=== PATIENT | male | born 1995 | race Caucasian/White ===

== ENCOUNTER 2019-01-25 07:15 | Emergency (ER) | payer MEDICAID ==
[~2019-01-25] VITALS: Ht 170.2 cm; Wt 60.4 kg
[2019-01-25 07:21] VITALS: BP 97/69
--- NOTE | 2019-01-25 07:26 | NUR ---
PT AMBULATED TO BED 7
--- NOTE | 2019-01-25 07:36 | NUR ---
PATIENT PRESENTS TO ED WITH C/O SMALL LACERATION TO LT FIFTH FINGER; NO ACTIVE BLEEDING AT THIS TIME. NO OBVIOUS DEFORMITY TO THE AFFECTED SITE. DENIES NAUSEA, VOMITING OR FEVER. PATIENT STATES PAIN OF 6/10; VSS; PER PT HE WAS BOWLING YESTERDAY AND SLIPPED AND FELL;THE BALL LANDED ON HIS LT HAND CAUSING THE SMALL LACERATION. PATIENT POSITIONED FOR COMFORT; BEDRAILS UP X1; BED DOWN. ER MD TO EVALUATE PT.
--- NOTE | 2019-01-25 07:43 | NUR ---
DR BYRNE EVALUATING PT
[2019-01-25] MEDS ORDERED: LIDOCAINE 2% 1000 MG/50 ML VIAL INJ ONE (07:50)
--- NOTE | 2019-01-25 08:10 | NUR ---
X-Ray at bedside.
--- NOTE | 2019-01-25 08:25 | NUR ---
DR BYRNE AT BEDSIDE RE-EVALUATING PT.
--- NOTE | 2019-01-25 08:49 | NUR ---
laceration kit set up.
--- NOTE | 2019-01-25 09:30 | NUR ---
Patient has a laceration of approx 1 cm. applied sutures using sterile technique. Edges well approximated. Site cleansed. No bleeding noted. Pt tolerated well.
[2019-01-25 09:45] VITALS: BP 106/82
== END 2019-01-25 09:46 | disposition home or self-care (01) ==
LOC: MED 07:15
DX: S61.217A Laceration without foreign body of left little finger without damage to nail, initial encounter (principal); W20.8XXA Other cause of strike by thrown, projected or falling object, initial encounter; Y93.54 Activity, bowling; Y92.89 Other specified places as the place of occurrence of the external cause; Y99.8 Other external cause status
CPT/HCPCS: 12001; 73130; 90471; 90715; 99283; J2001

== ENCOUNTER 2019-02-01 10:10 | Emergency (ER) | payer MEDICAID ==
[~2019-02-01] VITALS: Ht 167.6 cm; Wt 61.2 kg
[2019-02-01 10:15] VITALS: BP 105/65
--- NOTE | 2019-02-01 10:22 | NUR ---
CAME IN FOR SUTURE RECHECK TO LEFT FINGER. WAS TREATED ONE WEEK AGO.DENIES N/V/D; SKIN IS PINK/WARM/DRY; AAOX4 WITH EVEN AND STEADY GAIT; LUNGS CLEAR BL; HR EVEN AND REGULAR; PT DENIES ANY FEVER, CP, SOB, OR COUGH AT THIS TIME; VSS; PATIENT POSITIONED FOR COMFORT; HOB ELEVATED; BEDRAILS UP X2; BED DOWN. ER MD MADE AWARE OF PT STATUS.
--- NOTE | 2019-02-01 11:18 | NUR ---
Dr. Oscar evaluating patient at bedside.
--- NOTE | 2019-02-01 11:23 | NUR ---
suture removal kit at bedside as requested by MD----pt playing on cell phone sutures to left 5th digit remain intact, no drainage noted
--- NOTE | 2019-02-01 11:50 | NUR ---
Dr. Oscar evaluating patient at bedside.
[2019-02-01 12:10] VITALS: BP 105/65
--- NOTE | 2019-02-01 12:11 | NUR ---
Patient discharged with v/s stable. Written and verbal after care instructions given and explained. Patient verbalized understanding. Ambulatory with steady gait. All questions addressed prior to discharge. Advised to follow up with PMD.
== END 2019-02-01 12:11 | disposition home or self-care (01) ==
LOC: MED 10:10
DX: S61.217D Laceration without foreign body of left little finger without damage to nail, subsequent encounter (principal); X58.XXXD Exposure to other specified factors, subsequent encounter
CPT/HCPCS: 99281

== ENCOUNTER 2019-03-21 18:09 | Emergency (ER) | payer MEDICAID ==
[~2019-03-21] VITALS: Ht 172.7 cm; Wt 59.0 kg
[2019-03-21 18:29] VITALS: BP 106/82
--- NOTE | 2019-03-21 18:33 | NUR ---
PT TO WAIT IN ER LOBBY. VSS. [id number]. BLEEDING CONTROLLED
--- NOTE | 2019-03-21 23:33 | NUR ---
PATIENT LEFT WITHOUT BEING SEEN BY DR. DELA CRUZ. NO FURTHER CARE PROVIDED FOR PATIENT.
== END 2019-03-21 23:33 | disposition left against medical advice (07) ==
LOC: MED 18:09
DX: S01.81XA Laceration without foreign body of other part of head, initial encounter (principal); X58.XXXA Exposure to other specified factors, initial encounter; Y93.89 Activity, other specified; Y92.89 Other specified places as the place of occurrence of the external cause; Y99.8 Other external cause status; Z53.21 Procedure and treatment not carried out due to patient leaving prior to being seen by health care provider

== ENCOUNTER 2019-05-12 13:30 | Emergency (ER) | payer MEDICAID ==
[~2019-05-12] VITALS: Ht 170.2 cm; Wt 58.6 kg
[2019-05-12 13:39] VITALS: BP 109/76
--- NOTE | 2019-05-12 13:45 | NUR ---
PT AMBULATES BACK TO THE LOBBY
--- NOTE | 2019-05-12 14:25 | NUR ---
Pt ambulated to bed 9.
--- NOTE | 2019-05-12 14:40 | NUR ---
23/M PRESENTS TO ED, C/O EPISODE OF MINIMAL HEMATEMESIS TODAY. STATED THAT HE ALSO HAD AN EPISODE LAST WEEK. PT REPORTS THAT HE HAS BEEN FEELING N/V WHEN HE WAKES UP RECENTLY. PT DENIES FEVER/CHILL, CP, COUGH, SOB, OR ABD PAIN. PT AWAKE AND ALERT, SKIN NORMAL COLOR WARM AND DRY, RR EVEN AND UNLABORED. BS HYPOACTIVE X4, ABD SOFT FLAT NONTENDER. DENIES MED HX OR RX. REPORTS SOCIAL ALCOHOL USE AND OCCASIONAL CANNABINOID SMOKING
--- NOTE | 2019-05-12 14:46 | NUR ---
Patient returned from XRAY. RN re-evaluating patient at bedside.
[2019-05-12 15:46] LABS: BASOPHILS % (AUTO) 0.3 % (0.0-2.0); EOSINOPHILS % (AUTO) 0.7 % (0.0-4.0); HEMATOCRIT 54.1 % (36-52); HEMOGLOBIN 18.2 g/dL (12.0-18.0); LYMPHOCYTES # (AUTO) 0.9 K/uL (2.0-11.5); LYMPHOCYTES % (AUTO) 18.3 % (20.5-51.1); MEAN CORPUSCULAR HEMOGLOBIN 33 pg (27-31); MEAN CORPUSCULAR HGB CONC 34 g/dL (33-37); MEAN CORPUSCULAR VOLUME 96.4 fL (80-94); MONOCYTES # (AUTO) 0.4 K/uL (0.8-1.0); MONOCYTES % (AUTO) 7.6 % (1.7-9.3); NEUTROPHILS # (AUTO) 3.7 K/uL (1.8-7.7); NEUTROPHILS % (AUTO) 73.1 % (42.2-75.2); PLATELET COUNT (AUTO) 107 K/uL (140-450); RED BLOOD CELL COUNT(AUTO) 5.61 MIL/uL (4.20-6.10); RED CELL DISTRIBUTION WIDTH 13.5 % (11.6-13.7); WHITE BLOOD COUNT (AUTO) 5.1 K/uL (4.8-10.8)
[2019-05-12 16:03] LABS: ANION GAP 12.5 (8-16); CARBON DIOXIDE 27.3 mmol/L (21-32); CREATININE 0.8 mg/dL (0.7-1.3); POTASSIUM 3.8 mmol/L (3.5-5.1)
[2019-05-12 16:16] LABS: ALBUMIN 4.5 g/dL (3.4-5.0); TOTAL BILIRUBIN 3.3 mg/dL (0.0-1.0)
[2019-05-12 16:37] LABS: PROTHROMBIN TIME 12.7 secs (10.8-13.4)
--- NOTE | 2019-05-12 17:30 | NUR ---
CALLED PT BACK TO ER ---AFTER SPEAKING WITH PULM CONSULT PT WILL GO TO CT WITH CONTRAST.
[2019-05-12] MEDS ORDERED: NACL 0.9% 1,000 ML IV ONE ×2 (17:40→20:00)
--- NOTE | 2019-05-12 17:50 | NUR ---
ULTRASOUND AT BEDSIDE
--- NOTE | 2019-05-12 19:05 | NUR ---
CONT TO WAIT DISPO.
--- NOTE | 2019-05-12 19:20 | NUR ---
Pt report given to TOMASA hill. Transfer of care at this time.
--- NOTE | 2019-05-12 19:50 | NUR ---
PT SITTING IN BED NO SIGNS OF DISTRESS. WAITING FOR PENDING TEST RESULTS
[2019-05-12 21:15] VITALS: BP 118/73
--- NOTE | 2019-05-12 21:15 | NUR ---
Patient discharged with v/s stable. Written and verbal after care instructions given and explained. Patient alert, oriented and verbalized understanding of instructions. Ambulatory with steady gait. All questions addressed prior to discharge. ID band removed. Patient advised to follow up with PMD. Rx of LEVAQUIN WAS given. Patient educated on indication of medication including possible reaction and side effects. Opportunity to ask questions provided and answered.
== END 2019-05-12 21:15 | disposition home or self-care (01) ==
LOC: MED 13:30
DX: D69.6 Thrombocytopenia, unspecified (principal); R04.2 Hemoptysis; R11.10 Vomiting, unspecified; Z98.890 Other specified postprocedural states
CPT/HCPCS: 36415; 71046; 71275; 76700; 80053; 85025; 85610; 96360; 96361; 99284; J7030; Q0092; Q9967

== ENCOUNTER 2019-09-01 12:49 | Emergency (ER) | payer MEDICAID, OTHER ==
[~2019-09-01] VITALS: Ht 172.7 cm; Wt 63.5 kg
[2019-09-01 13:05] VITALS: BP 129/66
--- NOTE | 2019-09-01 13:52 | NUR ---
PT TO ER BED 12
--- NOTE | 2019-09-01 14:12 | NUR ---
23 Y/M PRESENTS TO ED FOR POSSIBLE FOREIGN BODY IN R EYE. 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 POSSIBLE PAINT OR STUCCO IN R EYE. PT REPORTS 6/10 PAIN IN R EYE, NON RADIATING, PAIN IS WORSE WHEN HE CLOSES HIS EYE. DENIES BLURRED VISION. PT A&O X 4, SKIN DRY, WARM TO TOUCH, LUNGS CLEAR. DENIES COUGH, CP, DYSURIA, N/V/D. PMH- CARDIAC HX ( UNSPECIFIED) NKDA RX- DENIES.
[2019-09-01] MEDS ORDERED: TETRACAINE HCL/PF 0.5% OPTH 4 ML BTL OP ONE (15:15)
[2019-09-01] MEDS ORDERED: FLUORESCEIN OPTH STRIP 1 MG OP ONE (15:35)
--- NOTE | 2019-09-01 15:42 | NUR ---
EFE ALMEIDA, OPTHALMIC TETRACAINE, ALMODOVAR LAMP AND FLUORESCEIN STRIPS AT BEDSIDE
--- NOTE | 2019-09-01 15:42 | NUR ---
SAL FLUSHED EYE WITH 2 NS FLUSHES.
[2019-09-01 16:25] VITALS: BP 114/78
--- NOTE | 2019-09-01 16:25 | NUR ---
Patient discharged with v/s stable. Written and verbal after care instructions given and explained. Patient alert, oriented and verbalized understanding of instructions. Ambulatory with steady gait. All questions addressed prior to discharge. ID band removed. Patient advised to follow up with PMD. Rx of IBUPROFEN, VISINE OPTH given. Patient educated on indication of medication including possible reaction and side effects. Opportunity to ask questions provided and answered.
== END 2019-09-01 16:25 | disposition home or self-care (01) ==
LOC: MED 12:49
DX: T15.91XA Foreign body on external eye, part unspecified, right eye, initial encounter (principal); I51.9 Heart disease, unspecified; Z98.890 Other specified postprocedural states
CPT/HCPCS: 99283

== ENCOUNTER 2020-04-19 07:28 | Emergency (ER) | payer SELFPAY ==
[~2020-04-19] VITALS: Ht 176.5 cm; Wt 66.7 kg
[2020-04-19 07:30] VITALS: BP 104/61
--- NOTE | 2020-04-19 07:35 | NUR ---
PT TAKEN TO ER BED 11
--- NOTE | 2020-04-19 07:36 | NUR ---
amb to bed 11
--- NOTE | 2020-04-19 07:38 | NUR ---
24/M c/o left eye pain/discomfort/redness. Feels like there is foreign object in left eye x 3 days. 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 Denies injury/trauma/flying objects. No change to vision. Pt states left eye has been watery. Hx- denies NKA
[2020-04-19] MEDS ORDERED: TETRACAINE HCL/PF 0.5% OPTH 4 ML BTL ONE (07:43)
[2020-04-19] MEDS ORDERED: FLUORESCEIN OPTH STRIP 1 MG ONE (07:43)
--- NOTE | 2020-04-19 07:44 | NUR ---
ERMD EVALUATING PT AT BEDSIDE
--- NOTE | 2020-04-19 07:54 | NUR ---
PT LEFT EYE IRRIGATED WITH NORMAL SALINE FLUSH X2 ERMD NOTIFIED
[2020-04-19 07:56] VITALS: BP 104/61
--- NOTE | 2020-04-19 07:56 | NUR ---
Patient discharged with v/s stable. Written and verbal after care instructions given and explained. Patient alert, oriented and verbalized understanding of instructions. Ambulatory with steady gait. All questions addressed prior to discharge. ID band removed. Patient advised to follow up with PMD. Rx of MOTRIN AND GARAMYCIN given. Patient educated on indication of medication including possible reaction and side effects. Opportunity to ask questions provided and answered.
== END 2020-04-19 07:56 | disposition home or self-care (01) ==
LOC: MED 07:28
DX: S05.02XA Injury of conjunctiva and corneal abrasion without foreign body, left eye, initial encounter (principal); X58.XXXA Exposure to other specified factors, initial encounter; Y93.89 Activity, other specified; Y92.89 Other specified places as the place of occurrence of the external cause; Y99.8 Other external cause status; I51.9 Heart disease, unspecified
CPT/HCPCS: 99283

== ENCOUNTER 2020-06-22 17:36 | Emergency (ER) | payer MEDICAID ==
[~2020-06-22] VITALS: Ht 175.3 cm; Wt 59.0 kg
[2020-06-22 17:38] VITALS: BP 106/78
--- NOTE | 2020-06-22 17:43 | NUR ---
PT TAKEN TO BED 11.
--- NOTE | 2020-06-22 17:47 | NUR ---
24 y/o male A&OX4 c/o dizziness since this AM. Pt states +N and Vx1. PERRLA +, denies blurry vision. Abdomen is flat, soft, non-tender, bowel sounds active X4. Last BM 06/21/20. Denies PMH, RX NKA
--- NOTE | 2020-06-22 18:07 | NUR ---
Dr. Bro at pt bedside for further evaluation.
--- NOTE | 2020-06-22 18:31 | NUR ---
research tech at bedside.
--- NOTE | 2020-06-22 18:38 | NUR ---
EKG being performed at bedside.
--- NOTE | 2020-06-22 19:00 | NUR ---
Established IV to left AC, good blood return.
[2020-06-22 19:03] LABS: ANION GAP 14.7 (8-16); CARBON DIOXIDE 26.7 mmol/L (21-32); POTASSIUM 3.4 mmol/L (3.5-5.1)
--- NOTE | 2020-06-22 19:07 | NUR ---
Gave report to Mary Ann RANDOLPH, transfered care at this time.
--- NOTE | 2020-06-22 19:08 | NUR ---
RECEIVED REPORT FROM TOMASA MIJARES FOR CONTINUATION OF CARE.
[2020-06-22] MEDS ORDERED: NACL 0.9% 1,000 ML IV ONE (19:45)
[2020-06-22] MEDS ORDERED: POTASSIUM CHLORIDE 10 MEQ TABER PO ONE (19:45)
--- NOTE | 2020-06-22 20:10 | NUR ---
PT IS LAYING DOWN, VISIBLE RISE AND FALL OF CHEST NOTED, PT CONNECTED TO THE INTAKE CLERK. BED IS LOCKED AND IN LOWEST POSITION. SIDE [id number]. PT IS NOT IN ANY ACUTE DISTRESS AT THIS TIME.
[2020-06-22 21:20] VITALS: BP 107/64
== END 2020-06-22 21:20 | disposition home or self-care (01) ==
LOC: MED 17:36
DX: R42 Dizziness and giddiness (principal); R11.2 Nausea with vomiting, unspecified; R94.31 Abnormal electrocardiogram [ECG] [EKG]; E87.6 Hypokalemia; Z98.890 Other specified postprocedural states
CPT/HCPCS: 36415; 71045; 80048; 84484; 93005; 96360; 99285; J7030